=== PATIENT | female | born 1995 ===

== ENCOUNTER 2021-04-01 07:27 | Inpatient (IN) | payer OTHER ==
[2021-04-01] MEDS ORDERED: Water For Irrigation,Sterile 1,000 ML Container IRR PRN (08:21)
[2021-04-01] MEDS ORDERED: Misoprostol 200 MCG Tab PO PRN (08:21)
[2021-04-01] MEDS ORDERED: Carboprost Tromethamine 250 MCG/1 ML Amp IM PRN (08:21)
[2021-04-01] MEDS ORDERED: Lidocaine 1% 50 ML MDV INJECT PRN (08:21)
[2021-04-01] MEDS ORDERED: Sodium Chloride 0.9% 10 ML Syringe FLUSH PRN (08:21)
[2021-04-01] MEDS ORDERED: Nalbuphine 10 MG/1 ML Vial IVPUSH PRN (08:21)
[2021-04-01] MEDS ORDERED: Butorphanol 1 MG/ML SDV IVPUSH PRN (08:21)
[2021-04-01] MEDS ORDERED: Ondansetron 4 MG/2 ML SDV IVPUSH PRN (08:21)
[2021-04-01] MEDS ORDERED: Sodium Chloride 0.9% 10 ML SDV IV PRN (08:21)
[2021-04-01] MEDS ORDERED: Tranexamic Acid 1,000 MG in Sodium Chloride 0.9% 100 ML IV PRN (08:21)
[2021-04-01] MEDS ORDERED: Methylergonovine 0.2 MG/1 ML Amp IM PRN (08:21)
[2021-04-01] MEDS ORDERED: Sodium Chloride 0.9% 2.5 ML Syringe FLUSH PRN (08:21)
[2021-04-01] MEDS ORDERED: Oxytocin/0.9 % Sodium Chloride 30 UNIT/500 ML BAG IV SCH (08:30)
--- NOTE | 2021-04-01 08:51 | PCM.LDHP ---
L&D History of Present Illness - General Date of Service: 04/01/21 Admit Problem/Dx: Patient Status Order with Admit Dx/Problem 04/01/21 07:33 Patient Status [ADT] Routine 04/01/21 08:21 Patient Status [ADT] Routine Admission Diagnosis/Problem Admission Diagnosis/Problem Source of Information: Patient History Limitations: Reports: No Limitations - History of Present Illness Introduction:: Subjective: 25 year old G1 female at 40w5d presented to labor and delivery at 0715 after noted spontaneous rupture of membranes. Light green meconium stained fluid noted. Has had cramping since her cervical check at the clinic yesterday. Reports good movement. Denies vaginal bleeding. has been complicated by maternal obesity. Denies headaches, visual changes or RUQ pain. 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 Social & Family History - Family History Family Medical History: No Pertinent Family History - Tobacco Use Tobacco Use Status *Q: Never Tobacco User Second Hand Smoke Exposure: No - Recreational Drug Use Recreational Drug Use: No H&P Review of Systems - Review of Systems: Review Of Systems: See Below General: Reports: No Symptoms HEENT: Reports: No Symptoms Pulmonary: Reports: No Symptoms Cardiovascular: Reports: No Symptoms Gastrointestinal: Reports: Abdominal Pain Genitourinary: Reports: No Symptoms Musculoskeletal: Reports: Back Pain Skin: Reports: No Symptoms Psychiatric: Reports: No Symptoms Neurological: Reports: No Symptoms Hematologic/Lymphatic: Reports: No Symptoms Immunologic: Reports: No Symptoms L&D Exam - Exam Exam: See Below - Vital Signs Weight: 222 lb - OB Specific Contraction Intensity: Irritability Movement: Active Heart Tones: Present Heart Tones per Min: 125 Heart Rate (FHR) Variability: Moderate (6-25 bpm) Presentation: Vertex Estimated Weight: 3700 grams per ultrasound - Boogie Score Boogie Score Cervix Position: Midposition Boogie Score Consistency: Medium Boogie Score Effacement: 51-70% Boogie Score Dilation: 3-4 cm Boogie Score Infant's Station: -2 Boogie Score Total: 7 - Exam General: Alert Lungs: Normal Respiratory Effort Cardiovascular: Regular Rate GI/Abdominal Exam: Normal Bowel Sounds, Soft, Non-Tender Back Exam: Full Range of Motion Extremities: Normal Range of Motion, Non-Tender, Pedal Edema (trace) Skin: Warm, Dry, Intact Psychiatric: Normal Mood - Patient Data Lab Results Last 24 hrs: Laboratory Results - last 24 hr 04/01/21 Range/Units 07:45 Membrane Rupture POSITIVE Problem List Initiated/Reviewed/Updated: Yes Orders Last 24hrs: Active Orders 24 hr Category Date Time Status Patient Status [ADT] Routine ADT 04/01/21 08:21 Active Heart Tones [RC] CONTINUOUS Care 04/01/21 08:21 Active Non Stress Test [RC] PER UNIT ROUTINE Care 04/01/21 07:33 Active May Shower [RC] ASDIRECTED Care 04/01/21 08:21 Active Notify Provider [RC] PRN Care 04/01/21 08:21 Active Up ad Nadira [RC] ASDIRECTED Care 04/01/21 07:33 Active Vaginal Exam [RC] Click to Edit Care 04/01/21 07:33 Active Vital Signs [RC] PER UNIT ROUTINE Care 04/01/21 07:33 Active CBC W/O DIFF,HEMOGRAM [HEME] Routine Lab 04/01/21 08:21 Ordered COMPREHENSIVE METABOLIC PN,CMP [CHEM] Routine Lab 04/01/21 08:21 Ordered RPR (SYPHILIS SERO) W/ RFLX [REF] Routine Lab 04/01/21 08:21 Ordered TYPE AND SCREEN [BBK] Routine Lab 04/01/21 08:21 Ordered UA W/O MICROSCOPIC [URIN] Routine Lab 04/01/21 08:33 Ordered Butorphanol [Stadol] Med 04/01/21 08:21 Active 1 mg IVPUSH Q1H PRN Carboprost Tromethamine [Hemabate DS] Med 04/01/21 08:21 Active 250 mcg IM ASDIRECTED PRN Lactated Ringers [Ringers, Lactated] 1,000 ml Med 04/01/21 08:30 Active IV ASDIRECTED Lidocaine 1% [Xylocaine 1%] Med 04/01/21 08:21 Active 50 ml INJECT ONETIME PRN Methylergonovine [Methergine] Med 04/01/21 08:21 Active 0.2 mg IM ASDIRECTED PRN Nalbuphine [Nubain] Med 04/01/21 08:21 Active 10 mg IVPUSH Q1H PRN Ondansetron [Zofran] Med 04/01/21 08:21 Active 4 mg IVPUSH Q6H PRN Oxytocin/0.9 % Sodium Chloride [Oxytocin 30 Unit in NS Med 04/01/21 08:30 Active 0.9% 500 ML Premix] 30 unit in 500 ml IV TITRATE Sodium Chloride 0.9% [Normal Saline] Med 04/01/21 08:21 Active 10 ml IV ASDIRECTED PRN Sodium Chloride 0.9% [Saline Flush] Med 04/01/21 08:21 Active 10 ml FLUSH ASDIRECTED PRN Sodium Chloride 0.9% [Saline Flush] Med 04/01/21 08:21 Active 2.5 ml FLUSH ASDIRECTED PRN Tranexamic Acid [Cyklokapron] 1,000 mg Med 04/01/21 08:21 Active Sodium Chloride 0.9% [Normal Saline] 100 ml IV ONETIME Water For Irrigation,Sterile [Sterile Water for Med 04/01/21 08:21 Active Irrigation] 1,000 ml IRR ASDIRECTED PRN miSOPROStoL [Cytotec] Med 04/01/21 08:21 Active 200 mcg PO ONETIME PRN Scalp Electrode [WOMSER] Per Unit Routine Oth 04/01/21 08:21 Ordered Peripheral IV Insertion Adult [OM.PC] Routine Oth 04/01/21 08:21 Ordered Resuscitation Status Routine Resus Stat 04/01/21 07:33 Ordered Medication Orders Butorphanol Tartrate (Butorphanol 1 Mg/Ml Sdv) 1 mg IVPUSH Q1H PRN PRN Reason: Pain (severe 7-10) Carboprost Tromethamine (Carboprost Tromethamine 250 Mcg/1 Ml Amp) 250 mcg IM ASDIRECTED PRN PRN Reason: Post Hemorrhage Lactated Ringer's (Ringers, Lactated) 1,000 mls @ 150 mls/hr IV ASDIRECTED MALLY Oxytocin/Sodium Chloride (Oxytocin 30 Unit In Ns 0.9% 500 Ml Premix) 30 unit in 500 mls @ 500 mls/hr IV TITRATE MALLY Tranexamic Acid 1,000 mg/ (Sodium Chloride) 110 mls @ 660 mls/hr IV ONETIME PRN PRN Reason: Bleeding Lidocaine HCl (Lidocaine 1% 50 Ml Mdv) 50 ml INJECT ONETIME PRN PRN Reason: Laceration repair Methylergonovine Maleate (Methylergonovine 0.2 Mg/1 Ml Amp) 0.2 mg IM ASDIRECTED PRN PRN Reason: Post Hemorrhage Misoprostol (Misoprostol 200 Mcg Tab) 200 mcg PO ONETIME PRN PRN Reason: Post Hemorrhage Nalbuphine HCl (Nalbuphine 10 Mg/1 Ml Vial) 10 mg IVPUSH Q1H PRN PRN Reason: Pain (severe 7-10) Ondansetron HCl (Ondansetron 4 Mg/2 Ml Sdv) 4 mg IVPUSH Q6H PRN PRN Reason: Nausea/Vomiting Sodium Chloride (Sodium Chloride 0.9% 10 Ml Syringe) 10 ml FLUSH ASDIRECTED PRN PRN Reason: Keep Vein Open Sodium Chloride (Sodium Chloride 0.9% 2.5 Ml Syringe) 2.5 ml FLUSH ASDIRECTED PRN PRN Reason: Keep Vein Open Sodium Chloride (Sodium Chloride 0.9% 10 Ml Sdv) 10 ml IV ASDIRECTED PRN PRN Reason: IV Use Sterile Water (Water For Irrigation,Sterile 1,000 Ml Container) 1,000 ml IRR ASDIRECTED PRN PRN Reason: delivery Assessment/Plan Comment:: Assessment: 25 year old G1 at 40w5d with spontaneous rupture of membranes Plan: - Admit to labor and delivery, will recheck cervix in 2 hours and recommend initiating Pitocin for labor augmentation if no change has occurred. - A positive, rubella immune, GBS negative - Elevated BP: patient asymptomatic. Preeclampsia labs ordered. Will continue to monitor BPs. - May receive epidural PRN pain management. 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
[2021-04-01 10:58] LABS: BLOOD UREA NITROGEN,BUN 7 mg/dL (7.0-18.0); CARBON DIOXIDE,CO2 26.1 mmol/L (21.0-32.0); CHLORIDE,CL 104 mmol/L (98-107); GLUCOSE RANDOM 81 mg/dL (74-106); POTASSIUM,K 4.2 mmol/L (3.5-5.1); SODIUM,NA 140 mmol/L (136-145)
[2021-04-01] MEDS: Lactated Ringers 1,000 ML IV SCH ×3 (11:20→18:07)
[2021-04-01] MEDS ORDERED: Ropivacaine HCl/PF 200 ML ONE (15:48)
[2021-04-01] MEDS ORDERED: ePHEDrine 50 MG/ML SDV IVPUSH PRN (16:24)
--- NOTE | 2021-04-01 16:26 | PCM.PREANE ---
Preanesthetic Assessment - Anesthesia/Transfusion/Family Hx Anesthesia History: No Prior Anesthesia Family History of Anesthesia Reaction: No Transfusion History: Unknown - Review of Systems General: No Symptoms Pulmonary: No Symptoms Cardiovascular: No Symptoms Gastrointestinal: No Symptoms Neurological: No Symptoms Other: Reports: None - Physical Assessment NPO Status Date: 04/01/21 NPO Status Time: 08:00 Height: 5 ft 6 in Weight: 222 lb ASA Class: 2 Mental Status: Alert & Oriented x3 Airway Class: Mallampati = 2 Dentition: Reports: Normal Dentition ROM/Head Extension: Full Lungs: Clear to Auscultation, Normal Respiratory Effort Cardiovascular: Regular Rate, Regular Rhythm - Lab Values: Laboratory Last Values WBC 15.33 K/uL (4.0-11.0) H 04/01/21 10:00 RBC 4.75 M/uL (4.30-5.90) 04/01/21 10:00 Hgb 14.4 g/dL (12.0-16.0) 04/01/21 10:00 Hct 40.9 % (36.0-46.0) 04/01/21 10:00 MCV 86.1 fL (80.0-98.0) 04/01/21 10:00 MCH 30.3 pg (27.0-32.0) 04/01/21 10:00 MCHC 35.2 g/dL (31.0-37.0) 04/01/21 10:00 RDW Std Deviation 41.8 fl (28.0-62.0) 04/01/21 10:00 RDW Coeff of Stella 13 % (11.0-15.0) 04/01/21 10:00 Plt Count 188 K/uL (150-400) 04/01/21 10:00 MPV 11.30 fL (7.40-12.00) 04/01/21 10:00 Nucleated RBC % 0.0 /100WBC 04/01/21 10:00 Nucleated RBCs # 0 K/uL 04/01/21 10:00 Sodium 140 mmol/L (136-145) 04/01/21 10:00 Potassium 4.2 mmol/L (3.5-5.1) 04/01/21 10:00 Chloride 104 mmol/L (98-107) 04/01/21 10:00 Carbon Dioxide 26.1 mmol/L (21.0-32.0) 04/01/21 10:00 BUN 7 mg/dL (7.0-18.0) 04/01/21 10:00 Creatinine 0.6 mg/dL (0.6-1.0) 04/01/21 10:00 Est Cr Clr Drug Dosing 133.01 mL/min 04/01/21 10:00 Estimated GFR (MDRD) > 60.0 ml/min 04/01/21 10:00 Glucose 81 mg/dL (74-106) 04/01/21 10:00 Calcium 8.8 mg/dL (8.5-10.1) 04/01/21 10:00 Total Bilirubin 0.2 mg/dL (0.2-1.0) 04/01/21 10:00 AST 15 IU/L (15-37) 04/01/21 10:00 ALT 17 IU/L (14-63) 04/01/21 10:00 Alkaline Phosphatase 174 U/L (46-116) H 04/01/21 10:00 Total Protein 6.3 g/dL (6.4-8.2) L 04/01/21 10:00 Albumin 2.8 g/dL (3.4-5.0) L 04/01/21 10:00 Globulin 3.5 g/dL (2.6-4.0) 04/01/21 10:00 Albumin/Globulin Ratio 0.8 (0.9-1.6) L 04/01/21 10:00 Urine Color YELLOW 04/01/21 09:15 Urine Appearance CLEAR 04/01/21 09:15 Urine pH 6.5 (5.0-8.0) 04/01/21 09:15 Ur Specific [place] 1.010 (1.001-1.035) 04/01/21 09:15 Urine Protein NEGATIVE mg/dL (NEGATIVE) 04/01/21 09:15 Urine Glucose (UA) NEGATIVE mg/dL (NEGATIVE) 04/01/21 09:15 Urine Ketones NEGATIVE mg/dL (NEGATIVE) 04/01/21 09:15 Urine Occult Blood NEGATIVE (NEGATIVE) 04/01/21 09:15 Urine Nitrite NEGATIVE (NEGATIVE) 04/01/21 09:15 Urine Bilirubin NEGATIVE (NEGATIVE) 04/01/21 09:15 Urine Urobilinogen 0.2 EU/dL (<2.0) 04/01/21 09:15 Ur Leukocyte Esterase NEGATIVE (NEGATIVE) 04/01/21 09:15 Ur Random Creatinine 30.9 mg/dL 04/01/21 09:15 U Random Total Protein 12.2 mg/dL (<11.9) H 04/01/21 09:15 Protein/Creatinin Ratio 0.4 04/01/21 09:15 Membrane Rupture POSITIVE 04/01/21 07:45 SARS-CoV-2 RNA (VICK) NEGATIVE (NEGATIVE) 04/01/21 09:18 Blood Type A POSITIVE 04/01/21 10:00 Antibody Screen NEGATIVE 04/01/21 10:00 - Allergies Allergies/Adverse Reactions: Allergies Allergy/AdvReac Type Severity Reaction Status Date / Time amoxicillin Allergy Hives Verified 04/01/21 07:35 - Blood Blood Available: Yes - Acknowledgements Anesthesia Type Planned: Epidural Pt an Appropriate Candidate for the Planned Anesthesia: Yes Alternatives and Risks of Anesthesia Discussed w Pt/Guardian: Yes Pt/Guardian Understands and Agrees with Anesthesia Plan: Yes PreAnesthesia Questionnaire - Past Health History Medical/Surgical History: Denies Medical/Surgical History - SUBSTANCE USE Tobacco Use Status *Q: Never Tobacco User Tobacco Use Within Last Twelve Months: No Second Hand Smoke Exposure: No Recreational Drug Use History: No - HOME MEDS Home Medications: Home Meds Esomeprazole [NexIUM] 20 mg PO DAILY 04/01/21 [History] Mv-Mn/Iron/FA/Herbal/Digestive [ One Tablet] 1 each PO 04/01/21 [History] - CURRENT (IN HOUSE) MEDS Current Meds: Current Medications Butorphanol Tartrate (Butorphanol 1 Mg/Ml Sdv) 1 mg IVPUSH Q1H PRN PRN Reason: Pain (severe 7-10) Carboprost Tromethamine (Carboprost Tromethamine 250 Mcg/1 Ml Amp) 250 mcg IM ASDIRECTED PRN PRN Reason: Post Hemorrhage Ephedrine Sulfate (Ephedrine 50 Mg/Ml Sdv) 10 mg IVPUSH Q5M PRN PRN Reason: Hypotension Ephedrine Sulfate (Ephedrine 50 Mg/Ml Sdv) 10 mg IVPUSH Q1M PRN PRN Reason: Hypotension Lactated Ringer's (Ringers, Lactated) 1,000 mls @ 150 mls/hr IV ASDIRECTED [facility] Last Admin: 04/01/21 11:20 Dose: 150 mls/hr Documented by: Oxytocin/Sodium Chloride (Oxytocin 30 Unit In Ns 0.9% 500 Ml Premix) 30 unit in 500 mls @ 500 mls/hr IV TITRATE [facility] Tranexamic Acid 1,000 mg/ (Sodium Chloride) 110 mls @ 660 mls/hr IV ONETIME PRN PRN Reason: Bleeding Lidocaine HCl (Lidocaine 1% 50 Ml Mdv) 50 ml INJECT ONETIME PRN PRN Reason: Laceration repair Methylergonovine Maleate (Methylergonovine 0.2 Mg/1 Ml Amp) 0.2 mg IM ASDIRECTED PRN PRN Reason: Post Hemorrhage Misoprostol (Misoprostol 200 Mcg Tab) 200 mcg PO ONETIME PRN PRN Reason: Post Hemorrhage Nalbuphine HCl (Nalbuphine 10 Mg/1 Ml Vial) 10 mg IVPUSH Q1H PRN PRN Reason: Pain (severe 7-10) Ondansetron HCl (Ondansetron 4 Mg/2 Ml Sdv) 4 mg IVPUSH Q6H PRN PRN Reason: Nausea/Vomiting Ropivacaine (Ropivacaine/Pf 400 Mg/200 Ml Educational Technician) 400 mg EPIDUR ASDIRECTED [facility] Sodium Chloride (Sodium Chloride 0.9% 10 Ml Syringe) 10 ml FLUSH ASDIRECTED PRN PRN Reason: Keep Vein Open Sodium Chloride (Sodium Chloride 0.9% 2.5 Ml Syringe) 2.5 ml FLUSH ASDIRECTED PRN PRN Reason: Keep Vein Open Sodium Chloride (Sodium Chloride 0.9% 10 Ml Sdv) 10 ml IV ASDIRECTED PRN PRN Reason: IV Use Sterile Water (Water For Irrigation,Sterile 1,000 Ml Container) 1,000 ml IRR ASDIRECTED PRN PRN Reason: delivery Discontinued Medications Ropivacaine (Naropin 0.2%) Confirm Administered Dose 200 mls @ as directed .ROUTE .[facility] Stop: 04/01/21 15:49
--- NOTE | 2021-04-01 16:28 | PCM.SN.2 ---
Time Documentation - Pre-Procedure Checklist Attending Provider Aware: Yes Chart Reviewed: Yes Consent Signed: Yes Labs Reviewed: Yes VS/FHR Reviewed: Yes Patient Identification Confirmation Method: Reports: Chart Visual, ID Band Visual, Verbal Patient Pt an Appropriate Candidate for the Planned Anesthesia: Yes Alternatives and Risks of Anesthesia Discussed w Pt/Guardian: Yes - Procedure Procedure Start Date: 04/01/21 Procedure Start Time: 15:[address]: Reports: Blood Pressure, Heart Rate, SPO2 Functional IV: Yes Safety Measures: Reports: Patient Identified, Procedure Verified, Site Verified, Procedure Time Out Patient Position: Reports: Sitting Prep: Reports: Alcohol x3, Betadine x3 Local Anesthetic: Reports: Intradermal Wheal w Lidocaine 1% Regional Placement Level: Reports: L2-3 Needle: Reports: 17 g Touhy Approach: Reports: Midline Technique: Reports: SERA Glass Syringe Parasthesia: Reports: None Fluid Obtained: Reports: None Test Dose Medication: Reports: Lidocaine 1.5% w Epinephrine 1:200,000 Test Dose Response: Reports: Negative Loading Dose Time: 16:00 Loading Dose Medication: 5cc 2% lido Continuous Infusion Start Time: 15:55 Continuous Infusion Medication: 0.2% Naropin Continuous Infusion Rate: 18 Continuous Infusion PCS Bolus Option: 4 Continuous Infusion Lockout Dose (cc/hr): 30 Patient Position Post Placement: Reports: Supline/JOCELYN VS and FHR Monitored in Unit Post Placement: Yes Procedure End Date: 04/01/21 Procedure End Time: 16:30
--- NOTE | 2021-04-01 16:29 | PCM.POSTAN ---
POST ANESTHESIA ASSESSMENT - MENTAL STATUS Mental Status: Alert, Oriented - RESPIRATORY Respiratory Status: Respiratory Rate WNL, Airway Patent, O2 Saturation Stable - CARDIOVASCULAR CV Status: Pulse Rate WNL, Blood Pressure Stable - GASTROINTESTINAL GI Status: No Symptoms - POST OP HYDRATION Hydration Status: Adequate & Stable
[2021-04-01] MEDS ORDERED: Ropivacaine 0.2% 2MG/ML 200 ML Bag EPIDUR SCH (16:30)
[2021-04-01] MEDS ORDERED: Lidocaine 2% 5 ML SDV ONE (16:37)
[2021-04-01] MEDS ORDERED: ePHEDrine 50 MG/ML SDV ONE (17:40)
[2021-04-01] MEDS: ePHEDrine 50 MG/ML SDV IVPUSH PRN ×2 (17:41→17:59)
[2021-04-02] MEDS ORDERED: oxyCODONE 5 MG Tab PO PRN (00:25)
[2021-04-02] MEDS ORDERED: Benzocaine/Menthol 20%-0.5% Spray 78 GM Cannister TOP PRN (00:25)
[2021-04-02] MEDS ORDERED: Witch Hazel Medicated Pads 40/Jar TOP PRN (00:25)
[2021-04-02] MEDS ORDERED: Lanolin 100% Cream 7 GM Tube TOP PRN (00:25)
[2021-04-02] MEDS ORDERED: Docusate Sodium 100 MG Cap PO PRN (00:25)
[2021-04-02] MEDS ORDERED: Bisacodyl 10 MG Supp RECTAL PRN (00:25)
[2021-04-02] MEDS ORDERED: Ibuprofen 400 MG Tab PO PRN (00:25)
[2021-04-02] MEDS ORDERED: Acetaminophen 500 MG Tab PO PRN (00:25)
--- NOTE | 2021-04-02 00:28 | PCM.DEL ---
L & D Note - General Info Date of Service: 04/02/21 Mother's Due Date: 03/27/21 - Delivery Note Labor: Spontaneous Delivery Outcome: Livebirth Infant Delivery Method: Spontaneous Vaginal Delivery-Single Presentation: Right Occiput Anterior (GABRIELLE) Nuchal Cord: None Anesthesia Type: Epidural Amniotic Fluid Description: Meconium Stained Episiotomy Type: None Laceration: 2nd Degree, Labial (right and left) Suture type: Vicryl (2-0), Chromic (3-0) Placenta: Intact, Spontaneous Cord: 3 Vessels Estimated Blood Loss: 350 Resuscitation Needed: No [place]: Suctioned, Bulb Syringe, Stimulated Score 1 min: 8 Score 5 min: 9 Delivery Comments (Free Text/Narrative):: Dictation #[id number] - General Info Date of Service: 04/02/21 Admission Dx/Problem (Free Text): Patient Status Order with Admit Dx/Problem 04/01/21 07:33 Patient Status [ADT] Routine 04/01/21 08:21 Patient Status [ADT] Routine Admission Diagnosis/Problem Admission Diagnosis/Problem - Patient Data Weight - Most Recent: 222 lb Lab Results Last 24 Hours: Laboratory Results - last 24 hr 04/01/21 04/01/21 04/01/21 Range/Units 07:45 09:15 09:15 WBC (4.0-11.0) K/uL RBC (4.30-5.90) M/uL Hgb (12.0-16.0) g/dL Hct (36.0-46.0) % MCV (80.0-98.0) fL MCH (27.0-32.0) pg MCHC (31.0-37.0) g/dL RDW Std Deviation (28.0-62.0) fl RDW Coeff of Stella (11.0-15.0) % Plt Count (150-400) K/uL MPV (7.40-12.00) fL Nucleated RBC % /100WBC Nucleated RBCs # K/uL Sodium (136-145) mmol/L Potassium (3.5-5.1) mmol/L Chloride (98-107) mmol/L Carbon Dioxide (21.0-32.0) mmol/L BUN (7.0-18.0) mg/dL Creatinine (0.6-1.0) mg/dL Est Cr Clr Drug Dosing mL/min Estimated GFR (MDRD) ml/min Glucose (74-106) mg/dL Calcium (8.5-10.1) mg/dL Total Bilirubin (0.2-1.0) mg/dL AST (15-37) IU/L ALT (14-63) IU/L Alkaline Phosphatase (46-116) U/L Total Protein (6.4-8.2) g/dL Albumin (3.4-5.0) g/dL Globulin (2.6-4.0) g/dL Albumin/Globulin Ratio (0.9-1.6) Urine Color YELLOW Urine Appearance CLEAR Urine pH 6.5 (5.0-8.0) Ur Specific [place] 1.010 (1.001-1.035) Urine Protein NEGATIVE (NEGATIVE) mg/dL Urine Glucose (UA) NEGATIVE (NEGATIVE) mg/dL Urine Ketones NEGATIVE (NEGATIVE) mg/dL Urine Occult Blood NEGATIVE (NEGATIVE) Urine Nitrite NEGATIVE (NEGATIVE) Urine Bilirubin NEGATIVE (NEGATIVE) Urine Urobilinogen 0.2 (<2.0) EU/dL Ur Leukocyte Esterase NEGATIVE (NEGATIVE) Ur Random Creatinine 30.9 mg/dL U Random Total Protein 12.2 H (<11.9) mg/dL Protein/Creatinin Ratio 0.4 Membrane Rupture POSITIVE SARS-CoV-2 RNA (VICK) (NEGATIVE) Blood Type Antibody Screen 04/01/21 04/01/21 04/01/21 Range/Units 09:18 10:00 10:00 WBC 15.33 H (4.0-11.0) K/uL RBC 4.75 (4.30-5.90) M/uL Hgb 14.4 (12.0-16.0) g/dL Hct 40.9 (36.0-46.0) % MCV 86.1 (80.0-98.0) fL MCH 30.3 (27.0-32.0) pg MCHC 35.2 (31.0-37.0) g/dL RDW Std Deviation 41.8 (28.0-62.0) fl RDW Coeff of Stella 13 (11.0-15.0) % Plt Count 188 (150-400) K/uL MPV 11.30 (7.40-12.00) fL Nucleated RBC % 0.0 /100WBC Nucleated RBCs # 0 K/uL Sodium 140 (136-145) mmol/L Potassium 4.2 (3.5-5.1) mmol/L Chloride 104 (98-107) mmol/L Carbon Dioxide 26.1 (21.0-32.0) mmol/L BUN 7 (7.0-18.0) mg/dL Creatinine 0.6 (0.6-1.0) mg/dL Est Cr Clr Drug Dosing 133.01 mL/min Estimated GFR (MDRD) > 60.0 ml/min Glucose 81 (74-106) mg/dL Calcium 8.8 (8.5-10.1) mg/dL Total Bilirubin 0.2 (0.2-1.0) mg/dL AST 15 (15-37) IU/L ALT 17 (14-63) IU/L Alkaline Phosphatase 174 H (46-116) U/L Total Protein 6.3 L (6.4-8.2) g/dL Albumin 2.8 L (3.4-5.0) g/dL Globulin 3.5 (2.6-4.0) g/dL Albumin/Globulin Ratio 0.8 L (0.9-1.6) Urine Color Urine Appearance Urine pH (5.0-8.0) Ur Specific [place] (1.001-1.035) Urine Protein (NEGATIVE) mg/dL Urine Glucose (UA) (NEGATIVE) mg/dL Urine Ketones (NEGATIVE) mg/dL Urine Occult Blood (NEGATIVE) Urine Nitrite (NEGATIVE) Urine Bilirubin (NEGATIVE) Urine Urobilinogen (<2.0) EU/dL Ur Leukocyte Esterase (NEGATIVE) Ur Random Creatinine mg/dL U Random Total Protein (<11.9) mg/dL Protein/Creatinin Ratio Membrane Rupture SARS-CoV-2 RNA (VICK) NEGATIVE (NEGATIVE) Blood Type Antibody Screen 04/01/21 Range/Units 10:00 WBC (4.0-11.0) K/uL RBC (4.30-5.90) M/uL Hgb (12.0-16.0) g/dL Hct (36.0-46.0) % MCV (80.0-98.0) fL MCH (27.0-32.0) pg MCHC (31.0-37.0) g/dL RDW Std Deviation (28.0-62.0) fl RDW Coeff of Stella (11.0-15.0) % Plt Count (150-400) K/uL MPV (7.40-12.00) fL Nucleated RBC % /100WBC Nucleated RBCs # K/uL Sodium (136-145) mmol/L Potassium (3.5-5.1) mmol/L Chloride (98-107) mmol/L Carbon Dioxide (21.0-32.0) mmol/L BUN (7.0-18.0) mg/dL Creatinine (0.6-1.0) mg/dL Est Cr Clr Drug Dosing mL/min Estimated GFR (MDRD) ml/min Glucose (74-106) mg/dL Calcium (8.5-10.1) mg/dL Total Bilirubin (0.2-1.0) mg/dL AST (15-37) IU/L ALT (14-63) IU/L Alkaline Phosphatase (46-116) U/L Total Protein (6.4-8.2) g/dL Albumin (3.4-5.0) g/dL Globulin (2.6-4.0) g/dL Albumin/Globulin Ratio (0.9-1.6) Urine Color Urine Appearance Urine pH (5.0-8.0) Ur Specific [place] (1.001-1.035) Urine Protein (NEGATIVE) mg/dL Urine Glucose (UA) (NEGATIVE) mg/dL Urine Ketones (NEGATIVE) mg/dL Urine Occult Blood (NEGATIVE) Urine Nitrite (NEGATIVE) Urine Bilirubin (NEGATIVE) Urine Urobilinogen (<2.0) EU/dL Ur Leukocyte Esterase (NEGATIVE) Ur Random Creatinine mg/dL U Random Total Protein (<11.9) mg/dL Protein/Creatinin Ratio Membrane Rupture SARS-CoV-2 RNA (VICK) (NEGATIVE) Blood Type A POSITIVE Antibody Screen NEGATIVE Med Orders - Current: Current Medications Butorphanol Tartrate (Butorphanol 1 Mg/Ml Sdv) 1 mg IVPUSH Q1H PRN PRN Reason: Pain (severe 7-10) Carboprost Tromethamine (Carboprost Tromethamine 250 Mcg/1 Ml Amp) 250 mcg IM ASDIRECTED PRN PRN Reason: Post Hemorrhage Ephedrine Sulfate (Ephedrine 50 Mg/Ml Sdv) 10 mg IVPUSH Q5M PRN PRN Reason: Hypotension Last Admin: 04/01/21 17:59 Dose: 5 mg Documented by: Ephedrine Sulfate (Ephedrine 50 Mg/Ml Sdv) 10 mg IVPUSH Q1M PRN PRN Reason: Hypotension Lactated Ringer's (Ringers, Lactated) 1,000 mls @ 150 mls/hr IV ASDIRECTED [facility] Last Admin: 04/01/21 18:07 Dose: 150 mls/hr Documented by: Oxytocin/Sodium Chloride (Oxytocin 30 Unit In Ns 0.9% 500 Ml Premix) 30 unit in 500 mls @ 500 mls/hr IV TITRATE [facility] Last Admin: 04/01/21 23:51 Dose: 500 mls/hr Documented by: Tranexamic Acid 1,000 mg/ (Sodium Chloride) 110 mls @ 660 mls/hr IV ONETIME PRN PRN Reason: Bleeding Lidocaine HCl (Lidocaine 1% 50 Ml Mdv) 50 ml INJECT ONETIME PRN PRN Reason: Laceration repair Methylergonovine Maleate (Methylergonovine 0.2 Mg/1 Ml Amp) 0.2 mg IM ASDIRECTED PRN PRN Reason: Post Hemorrhage Miscellaneous Medication (Phenylephrine Hcl In 0.9% Nacl 1 Mg/10 Ml Syringe) 0.1 mg IVPUSH Q1M PRN PRN Reason: Hypotension Misoprostol (Misoprostol 200 Mcg Tab) 200 mcg PO ONETIME PRN PRN Reason: Post Hemorrhage Nalbuphine HCl (Nalbuphine 10 Mg/1 Ml Vial) 10 mg IVPUSH Q1H PRN PRN Reason: Pain (severe 7-10) Ondansetron HCl (Ondansetron 4 Mg/2 Ml Sdv) 4 mg IVPUSH Q6H PRN PRN Reason: Nausea/Vomiting Ropivacaine (Ropivacaine 0.2% 2mg/Ml 200 Ml Bag) 400 mg EPIDUR ASDIRECTED [facility] Sodium Chloride (Sodium Chloride 0.9% 10 Ml Syringe) 10 ml FLUSH ASDIRECTED PRN PRN Reason: Keep Vein Open Sodium Chloride (Sodium Chloride 0.9% 2.5 Ml Syringe) 2.5 ml FLUSH ASDIRECTED PRN PRN Reason: Keep Vein Open Sodium Chloride (Sodium Chloride 0.9% 10 Ml Sdv) 10 ml IV ASDIRECTED PRN PRN Reason: IV Use Sterile Water (Water For Irrigation,Sterile 1,000 Ml Container) 1,000 ml IRR ASDIRECTED PRN PRN Reason: delivery Discontinued Medications Ephedrine Sulfate (Ephedrine 50 Mg/Ml Sdv) Confirm Administered Dose 50 mg .ROUTE .STK-MED ONE Stop: 04/01/21 17:41 Ropivacaine (Naropin 0.2%) Confirm Administered Dose 200 mls @ as directed .R OUTE .STK-MED ONE Stop: 04/01/21 15:49 Lidocaine (Lidocaine 2% 5 Ml Sdv) Confirm Administered Dose 10 ml .ROUTE .STK- MED ONE Stop: 04/01/21 16:38 - Problem List Review Problem List Initiated/Reviewed/Updated: Yes - My Orders Last 24 Hours: My Active Orders 04/01/21 Breakfast Regular Diet [DIET] 04/01/21 07:33 Up ad Nadira [RC] ASDIRECTED Vital Signs [RC] PER UNIT ROUTINE Resuscitation Status Routine 04/01/21 08:21 Patient Status [ADT] Routine May Shower [RC] ASDIRECTED Notify Provider [RC] PRN Butorphanol [Stadol] 1 mg IVPUSH Q1H PRN Carboprost Tromethamine [Hemabate DS] 250 mcg IM ASDIRECTED PRN Lidocaine 1% [Xylocaine 1%] 50 ml INJECT ONETIME PRN Methylergonovine [Methergine] 0.2 mg IM ASDIRECTED PRN Nalbuphine [Nubain] 10 mg IVPUSH Q1H PRN Ondansetron [Zofran] 4 mg IVPUSH Q6H PRN Sodium Chloride 0.9% [Normal Saline] 10 ml IV ASDIRECTED PRN Sodium Chloride 0.9% [Saline Flush] 10 ml FLUSH ASDIRECTED PRN Sodium Chloride 0.9% [Saline Flush] 2.5 ml FLUSH ASDIRECTED PRN Tranexamic Acid [Cyklokapron] 1,000 mg Sodium Chloride 0.9% [Normal Saline] 100 ml IV ONETIME Water For Irrigation,Sterile [Sterile Water for Irrigation] 1,000 ml IRR ASDIRECTED PRN miSOPROStoL [Cytotec] 200 mcg PO ONETIME PRN Scalp Electrode [WOMSER] Per Unit Routine Peripheral IV Insertion Adult [OM.PC] Routine 04/01/21 08:30 Lactated Ringers [Ringers, Lactated] 1,000 ml IV ASDIRECTED Oxytocin/0.9 % Sodium Chloride [Oxytocin 30 Unit in NS 0.9% 500 ML Premix] 30 unit in 500 ml IV TITRATE 04/01/21 10:00 RPR (SYPHILIS SERO) W/ RFLX [REF] Routine 04/02/21 00:25 Patient Status [ADT] Routine May Shower [RC] ASDIRECTED Up ad Nadira [RC] ASDIRECTED Vital Signs [RC] PER UNIT ROUTINE Acetaminophen [Tylenol Extra Strength] 1,000 mg PO Q4H PRN Acetaminophen [Tylenol Extra Strength] 500 mg PO Q4H PRN Benzocaine/Menthol [Dermoplast Pain Relief 20%-0.5% [place]] 78 gm TOP ASDIRECTED PRN Docusate Sodium [Colace] 100 mg PO Q12H PRN Ibuprofen [Motrin] 400 mg PO Q4H PRN Ibuprofen [Motrin] 800 mg PO Q6H PRN Lanolin [Lansinoh HPA] See Dose Instructions TOP ASDIRECTED PRN bisacodyL [Dulcolax] 10 mg RECTAL ONETIME PRN oxyCODONE 5 mg PO Q2H PRN witch Kareen [Tucks] 1 pad TOP ASDIRECTED PRN Assess Lochia [WOMSER] Per Unit Routine Assess Uterine Involution [WOMSER] Per Unit Routine Peripheral IV Discontinue [OM.PC] Routine 04/03/21 05:11 HEMOGLOBIN/HEMATOCRIT,HH [HEME] Timed - Assessment Assessment:: 25 year old G1 now P1 s/p with preeclampsia without severe features - Plan Plan:: Routine cares * A positive, rubella immune, GBS negative * PO pain medication ordered PRN * Regular diet as tolerated * Encourage ambulation and fluid intake when able * Plans to breastfeed, nursing assistance as needed Preeclampsia without severe features * Diagnosed with elevated BP and protein/creatinine ratio of 0.4 * Asymptomatic * Will continue to monitor closely Dispo: stable. Admit to room.
--- NOTE | 2021-04-02 01:02 | OR ---
SURGEON: NADIA QUIÑONES MD DATE OF PROCEDURE: 04/01/2021 PREOPERATIVE DIAGNOSES: 1. Term intrauterine at 40 weeks and 5 days. 2. Maternal obesity. 3. Preeclampsia without severe features. POSTOPERATIVE DIAGNOSES: 1. Term intrauterine at 40 weeks and 5 days. 2. Maternal obesity. 3. Preeclampsia without severe features. PROCEDURE PERFORMED: 1. Spontaneous vaginal delivery. 2. Repair of bilateral labial lacerations and second-degree perineal laceration. PRIMARY SURGEON: Nadia Quiñones MD ANESTHESIOLOGIST: Dr. Mp Allen. ANESTHESIA: Epidural. ESTIMATED BLOOD LOSS: 350 mL. FINDINGS: Viable female infant, score of 8 and 9. Thick meconium-stained amniotic fluid. weight of 3850 g. INDICATION FOR THE PROCEDURE: The patient is a 25-year-old 1, para 0, who presented to Labor and Delivery with spontaneous onset of labor and rupture of membranes at 40 weeks and 5 days. Rupture of membranes occurred at approximately 0700 am on 04/01/2021 with meconium-stained fluid noted. She was admitted to Labor and Delivery, and labor progressed spontaneously. She received an epidural for pain management. At approximately 2210, I was notified that the patient was completely dilated and 0 station, and plan was to labor down at that time. Approximately 20 minutes later, I was called for delivery. Upon my arrival, the patient was noted to be completely dilated and at +1 station with variable decelerations during contractions. The patient was placed in the lithotomy position. DESCRIPTION OF PROCEDURE: The patient pushed over approximately 45 minutes with good descent. Head delivered in occiput anterior position, and restituted ROT. Anterior shoulder delivered easily. No nuchal cord was noted. Posterior shoulder and remainder of the body were then delivered. Nose and mouth were then suctioned. The infant was then placed on maternal abdomen and evaluated by the awaiting nursing staff and respiratory therapist. The baby was crying vigorously and moving all extremities freely after the delivery. The umbilical cord was clamped and cut after approximately 2 minutes when it was no longer pulsating. Arterial, venous, and cord blood gases were then obtained. The placenta was then expressed intact. Fundal massage was then performed, and the uterus was noted to be firm and at the umbilicus. Examination of the perineum was then performed and right and left labial lacerations were noted along with a small second- degree perineal laceration. The bilateral labial lacerations were repaired in a running fashion with 3-0 chromic, and the perineal laceration was repaired in the usual fashion with 2-0 Vicryl. Hemostasis was then confirmed. The patient tolerated the procedure well and is recovering in the delivery room with the infant at this time. SALAZAR WARREN /[id number]
[2021-04-02] MEDS: Acetaminophen 500 MG Tab PO PRN ×3 (01:35→21:39)
[2021-04-02] MEDS: Ibuprofen 800 MG Tab PO PRN ×3 (01:36→21:39)
--- NOTE | 2021-04-02 06:27 | PCM48HPAN ---
Post Anesthesia Note - EVALUATION WITHIN 48HRS OF ANESTHETIC Vital Signs in Normal Range: Yes Patient Participated in Evaluation: Yes Respiratory Function Stable: Yes Airway Patent: Yes Cardiovascular Function Stable: Yes Hydration Status Stable: Yes Pain Control Satisfactory: Yes Nausea and Vomiting Control Satisfactory: Yes Mental Status Recovered: Yes Vital Signs: Last Vital Signs Temp 97.7 F 04/02/21 05:18 Pulse 90 04/02/21 05:18 Resp 16 04/02/21 05:18 BP 109/64 04/02/21 05:18 Pulse Ox 100 04/02/21 05:18
--- NOTE | 2021-04-02 17:00 | PCM.PNPP ---
- General Info Date of Service: 04/02/21 Admission Dx/Problem (Free Text): Patient Status Order with Admit Dx/Problem 04/01/21 07:33 Patient Status [ADT] Routine 04/01/21 08:21 Patient Status [ADT] Routine Admission Diagnosis/Problem Admission Diagnosis/Problem Subjective Update: Resting comfortably in bed during rounds, nursing baby. Pain controlled with PO medications. Ambulating and voiding independently. Tolerating regular diet. Lochia decreasing. Denies headache, visual changes or right upper quadrant pain. - General Info Date of Service: 04/02/21 - Patient Data Vital Signs - Most Recent: Last Vital Signs Temp 98.5 F 04/02/21 15:45 Pulse 98 04/02/21 15:45 Resp 16 04/02/21 15:45 BP 141/95 H 04/02/21 15:45 Pulse Ox 99 04/02/21 15:45 Weight - Most Recent: 222 lb I&O - Last 24 Hours: Intake & Output 04/02/21 04/02/21 04/02/21 06:59 14:59 22:59 Intake Total 1500 Output Total 700 Balance 800 Lab Results - Last 24 Hours: Laboratory Results - last 24 hr 04/01/21 04/01/21 Range/Units 23:47 23:47 Cord ABG pH 7.353 (7.18-7.38) Cord ABG Base Excess -5 (-10--2) Cord VBG pH 7.294 (7.25-7.45) Cord VBG Base Excess -6 (-10--2) Med Orders - Current: Current Medications Acetaminophen (Acetaminophen 500 Mg Tab) 500 mg PO Q4H PRN PRN Reason: Pain (mild 1-3) Acetaminophen (Acetaminophen 500 Mg Tab) 1,000 mg PO Q4H PRN PRN Reason: Pain (mild 1-3) Last Admin: 04/02/21 09:58 Dose: 1,000 mg Documented by: Benzocaine/Menthol (Benzocaine/Menthol 20%-0.5% [place] 78 Gm Cannister) 78 gm TOP ASDIRECTED PRN PRN Reason: Perineal Comfort Measure Last Admin: 04/02/21 02:31 Dose: 1 spray Documented by: Bisacodyl (Bisacodyl 10 Mg Supp) 10 mg RECTAL ONETIME PRN PRN Reason: Constipation Butorphanol Tartrate (Butorphanol 1 Mg/Ml Sdv) 1 mg IVPUSH Q1H PRN PRN Reason: Pain (severe 7-10) Carboprost Tromethamine (Carboprost Tromethamine 250 Mcg/1 Ml Amp) 250 mcg IM ASDIRECTED PRN PRN Reason: Post Hemorrhage Docusate Sodium (Docusate Sodium 100 Mg Cap) 100 mg PO Q12H PRN PRN Reason: Constipation Last Admin: 04/02/21 09:57 Dose: 100 mg Documented by: Emollient Ointment (Lanolin 100% Cream 7 Gm Tube) 0 gm TOP ASDIRECTED PRN PRN Reason: Sore Nipples Last Admin: 04/02/21 12:03 Dose: 1 tube Documented by: Ephedrine Sulfate (Ephedrine 50 Mg/Ml Sdv) 10 mg IVPUSH Q5M PRN PRN Reason: Hypotension Last Admin: 04/01/21 17:59 Dose: 5 mg Documented by: Ephedrine Sulfate (Ephedrine 50 Mg/Ml Sdv) 10 mg IVPUSH Q1M PRN PRN Reason: Hypotension Lactated Ringer's (Ringers, Lactated) 1,000 mls @ 150 mls/hr IV ASDIRECTED MALLY Last Admin: 04/01/21 18:07 Dose: 150 mls/hr Documented by: Oxytocin/Sodium Chloride (Oxytocin 30 Unit In Ns 0.9% 500 Ml Premix) 30 unit in 500 mls @ 500 mls/hr IV TITRATE [facility] Last Admin: 04/01/21 23:51 Dose: 500 mls/hr Documented by: Tranexamic Acid 1,000 mg/ (Sodium Chloride) 110 mls @ 660 mls/hr IV ONETIME PRN PRN Reason: Bleeding Ibuprofen (Ibuprofen 400 Mg Tab) 400 mg PO Q4H PRN PRN Reason: Pain (mild 1-3) Ibuprofen (Ibuprofen 800 Mg Tab) 800 mg PO Q6H PRN PRN Reason: Cramping Last Admin: 04/02/21 15:42 Dose: 800 mg Documented by: Lidocaine HCl (Lidocaine 1% 50 Ml Mdv) 50 ml INJECT ONETIME PRN PRN Reason: Laceration repair Methylergonovine Maleate (Methylergonovine 0.2 Mg/1 Ml Amp) 0.2 mg IM ASDIRECTED PRN PRN Reason: Post Hemorrhage Miscellaneous Medication (Phenylephrine Hcl In 0.9% Nacl 1 Mg/10 Ml Syringe) 0.1 mg IVPUSH Q1M PRN PRN Reason: Hypotension Misoprostol (Misoprostol 200 Mcg Tab) 200 mcg PO ONETIME PRN PRN Reason: Post Hemorrhage Nalbuphine HCl (Nalbuphine 10 Mg/1 Ml Vial) 10 mg IVPUSH Q1H PRN PRN Reason: Pain (severe 7-10) Ondansetron HCl (Ondansetron 4 Mg/2 Ml Sdv) 4 mg IVPUSH Q6H PRN PRN Reason: Nausea/Vomiting Oxycodone HCl (Oxycodone 5 Mg Tab) 5 mg PO Q2H PRN PRN Reason: Pain (severe 7-10) Ropivacaine (Ropivacaine 0.2% 2mg/Ml 200 Ml Bag) 400 mg EPIDUR ASDIRECTED MALLY Sodium Chloride (Sodium Chloride 0.9% 10 Ml Syringe) 10 ml FLUSH ASDIRECTED PRN PRN Reason: Keep Vein Open Sodium Chloride (Sodium Chloride 0.9% 2.5 Ml Syringe) 2.5 ml FLUSH ASDIRECTED PRN PRN Reason: Keep Vein Open Sodium Chloride (Sodium Chloride 0.9% 10 Ml Sdv) 10 ml IV ASDIRECTED PRN PRN Reason: IV Use Sterile Water (Water For Irrigation,Sterile 1,000 Ml Container) 1,000 ml IRR ASDIRECTED PRN PRN Reason: delivery Witch Kareen (Witch Kareen Medicated Pads 40/Jar) 1 pad TOP ASDIRECTED PRN PRN Reason: comfort care Last Admin: 04/02/21 02:32 Dose: 1 pad Documented by: Discontinued Medications Ephedrine Sulfate (Ephedrine 50 Mg/Ml Sdv) Confirm Administered Dose 50 mg .ROUTE .STK-MED ONE Stop: 04/01/21 17:41 Last Admin: 04/02/21 02:30 Dose: Not Given Documented by: Ropivacaine (Naropin 0.2%) Confirm Administered Dose 200 mls @ as directed .ROUTE .STK-MED ONE Stop: 04/01/21 15:49 Last Admin: 04/02/21 08:28 Dose: Not Given Documented by: Lidocaine (Lidocaine 2% 5 Ml Sdv) Confirm Administered Dose 10 ml .ROUTE .STK- MED ONE Stop: 04/01/21 16:38 Last Admin: 04/02/21 02:30 Dose: Not Given Documented by: - Interaction Infant Disposition, : [place] in Room with Family Interaction: Holding Infant Infant Feeding: Breastfed ; Nursed Well Support Person: - Recovery Exam Fundal Tone: Firm Fundal Level: At Umbilicus Fundal Placement: Midline Lochia Amount: Small Lochia Color: Rubra/Red Perineum Description: Intact, Minimal Bruising/Swelling Episiotomy/Laceration: Approximated Bladder Status: Voiding Urinary Elimination: Voided - Exam General: Alert Lungs: Normal Respiratory Effort Cardiovascular: Regular Rate GI/Abdominal Exam: Soft, Non-Tender Extremities: Normal Range of Motion, Non-Tender, Pedal Edema (1+) Skin: Warm, Dry, Intact Neurological: No New Focal Deficit Psy/Mental Status: Normal Mood - Problem List Review Problem List Initiated/Reviewed/Updated: Yes - My Orders Last 24 Hours: My Active Orders 04/02/21 00:25 Patient Status [ADT] Routine May Shower [RC] ASDIRECTED Up ad Nadira [RC] ASDIRECTED Vital Signs [RC] PER UNIT ROUTINE Acetaminophen [Tylenol Extra Strength] 1,000 mg PO Q4H PRN Acetaminophen [Tylenol Extra Strength] 500 mg PO Q4H PRN Benzocaine/Menthol [Dermoplast Pain Relief 20%-0.5% [place]] 78 gm TOP ASDIRECTED PRN Docusate Sodium [Colace] 100 mg PO Q12H PRN Ibuprofen [Motrin] 400 mg PO Q4H PRN Ibuprofen [Motrin] 800 mg PO Q6H PRN Lanolin [Lansinoh HPA] See Dose Instructions TOP ASDIRECTED PRN bisacodyL [Dulcolax] 10 mg RECTAL ONETIME PRN oxyCODONE 5 mg PO Q2H PRN witch Kareen [Tucks] 1 pad TOP ASDIRECTED PRN Assess Lochia [WOMSER] Per Unit Routine Assess Uterine Involution [WOMSER] Per Unit Routine Peripheral IV Discontinue [OM.PC] Routine 04/03/21 05:11 HEMOGLOBIN/HEMATOCRIT,HH [HEME] Timed - Assessment Assessment:: 25 year old G1 now P1 PPD1 s/p with preeclampsia without severe features - Plan Plan:: Routine cares * A positive, rubella immune, GBS negative * PO pain medication ordered PRN * Regular diet as tolerated * Encourage ambulation and fluid intake when able * Plans to breastfeed, nursing assistance as needed Preeclampsia without severe features * Diagnosed with elevated BP and protein/creatinine ratio of 0.4 * Asymptomatic * Will continue to monitor closely Dispo: stable. Anticipate discharge PPD 2-3 pending maternal/ status. Continue cares today.
[2021-04-03] MEDS: Acetaminophen 500 MG Tab PO PRN (07:56)
--- NOTE | 2021-04-03 09:48 | PCM.PNPP ---
- General Info Date of Service: 04/03/21 Admission Dx/Problem (Free Text): Patient Status Order with Admit Dx/Problem 04/01/21 07:33 Patient Status [ADT] Routine 04/01/21 08:21 Patient Status [ADT] Routine Admission Diagnosis/Problem Admission Diagnosis/Problem Subjective Update: Resting comfortably in bed during rounds. Pain controlled with PO medications. Ambulating and voiding independently. Tolerating regular diet. Lochia decreasing. Denies headache, visual changes or right upper quadrant pain. going well. Baby with elevated bilirubin last evening, under bili- lights early this morning. - General Info Date of Service: 04/03/21 - Patient Data Vital Signs - Most Recent: Last Vital Signs Temp 97.5 F 04/03/21 07:55 Pulse 80 04/03/21 07:55 Resp 16 04/03/21 07:55 BP 117/63 04/03/21 07:55 Pulse Ox 99 04/03/21 07:55 Weight - Most Recent: 222 lb Lab Results - Last 24 Hours: Laboratory Results - last 24 hr 04/03/21 Range/Units 05:45 Hgb 11.8 L (12.0-16.0) g/dL Hct 35.0 L (36.0-46.0) % Med Orders - Current: Current Medications Acetaminophen (Acetaminophen 500 Mg Tab) 500 mg PO Q4H PRN PRN Reason: Pain (mild 1-3) Acetaminophen (Acetaminophen 500 Mg Tab) 1,000 mg PO Q4H PRN PRN Reason: Pain (mild 1-3) Last Admin: 04/03/21 07:56 Dose: 1,000 mg Documented by: Benzocaine/Menthol (Benzocaine/Menthol 20%-0.5% [place] 78 Gm Cannister) 78 gm TOP ASDIRECTED PRN PRN Reason: Perineal Comfort Measure Last Admin: 04/02/21 02:31 Dose: 1 spray Documented by: Bisacodyl (Bisacodyl 10 Mg Supp) 10 mg RECTAL ONETIME PRN PRN Reason: Constipation Butorphanol Tartrate (Butorphanol 1 Mg/Ml Sdv) 1 mg IVPUSH Q1H PRN PRN Reason: Pain (severe 7-10) Carboprost Tromethamine (Carboprost Tromethamine 250 Mcg/1 Ml Amp) 250 mcg IM ASDIRECTED PRN PRN Reason: Post Hemorrhage Docusate Sodium (Docusate Sodium 100 Mg Cap) 100 mg PO Q12H PRN PRN Reason: Constipation Last Admin: 04/02/21 09:57 Dose: 100 mg Documented by: Emollient Ointment (Lanolin 100% Cream 7 Gm Tube) 0 gm TOP ASDIRECTED PRN PRN Reason: Sore Nipples Last Admin: 04/02/21 12:03 Dose: 1 tube Documented by: Ephedrine Sulfate (Ephedrine 50 Mg/Ml Sdv) 10 mg IVPUSH Q5M PRN PRN Reason: Hypotension Last Admin: 04/01/21 17:59 Dose: 5 mg Documented by: Ephedrine Sulfate (Ephedrine 50 Mg/Ml Sdv) 10 mg IVPUSH Q1M PRN PRN Reason: Hypotension Lactated Ringer's (Ringers, Lactated) 1,000 mls @ 150 mls/hr IV ASDIRECTED [facility] Last Admin: 04/01/21 18:07 Dose: 150 mls/hr Documented by: Oxytocin/Sodium Chloride (Oxytocin 30 Unit In Ns 0.9% 500 Ml Premix) 30 unit in 500 mls @ 500 mls/hr IV TITRATE [facility] Last Admin: 04/01/21 23:51 Dose: 500 mls/hr Documented by: Tranexamic Acid 1,000 mg/ (Sodium Chloride) 110 mls @ 660 mls/hr IV ONETIME PRN PRN Reason: Bleeding Ibuprofen (Ibuprofen 400 Mg Tab) 400 mg PO Q4H PRN PRN Reason: Pain (mild 1-3) Ibuprofen (Ibuprofen 800 Mg Tab) 800 mg PO Q6H PRN PRN Reason: Cramping Last Admin: 04/02/21 21:39 Dose: 800 mg Documented by: Lidocaine HCl (Lidocaine 1% 50 Ml Mdv) 50 ml INJECT ONETIME PRN PRN Reason: Laceration repair Methylergonovine Maleate (Methylergonovine 0.2 Mg/1 Ml Amp) 0.2 mg IM ASDIRECTED PRN PRN Reason: Post Hemorrhage Miscellaneous Medication (Phenylephrine Hcl In 0.9% Nacl 1 Mg/10 Ml Syringe) 0.1 mg IVPUSH Q1M PRN PRN Reason: Hypotension Misoprostol (Misoprostol 200 Mcg Tab) 200 mcg PO ONETIME PRN PRN Reason: Post Hemorrhage Nalbuphine HCl (Nalbuphine 10 Mg/1 Ml Vial) 10 mg IVPUSH Q1H PRN PRN Reason: Pain (severe 7-10) Ondansetron HCl (Ondansetron 4 Mg/2 Ml Sdv) 4 mg IVPUSH Q6H PRN PRN Reason: Nausea/Vomiting Oxycodone HCl (Oxycodone 5 Mg Tab) 5 mg PO Q2H PRN PRN Reason: Pain (severe 7-10) Ropivacaine (Ropivacaine 0.2% 2mg/Ml 200 Ml Bag) 400 mg EPIDUR ASDIRECTED MALLY Sodium Chloride (Sodium Chloride 0.9% 10 Ml Syringe) 10 ml FLUSH ASDIRECTED PRN PRN Reason: Keep Vein Open Sodium Chloride (Sodium Chloride 0.9% 2.5 Ml Syringe) 2.5 ml FLUSH ASDIRECTED PRN PRN Reason: Keep Vein Open Sodium Chloride (Sodium Chloride 0.9% 10 Ml Sdv) 10 ml IV ASDIRECTED PRN PRN Reason: IV Use Sterile Water (Water For Irrigation,Sterile 1,000 Ml Container) 1,000 ml IRR ASDIRECTED PRN PRN Reason: delivery Witch Gloria (Witch Gloria Medicated Pads 40/Jar) 1 pad TOP ASDIRECTED PRN PRN Reason: comfort care Last Admin: 04/02/21 02:32 Dose: 1 pad Documented by: Discontinued Medications Ephedrine Sulfate (Ephedrine 50 Mg/Ml Sdv) Confirm Administered Dose 50 mg .ROUTE .STK-MED ONE Stop: 04/01/21 17:41 Last Admin: 04/02/21 02:30 Dose: Not Given Documented by: Ropivacaine (Naropin 0.2%) Confirm Administered Dose 200 mls @ as directed .ROUTE .STK-MED ONE Stop: 04/01/21 15:49 Last Admin: 04/02/21 08:28 Dose: Not Given Documented by: Lidocaine (Lidocaine 2% 5 Ml Sdv) Confirm Administered Dose 10 ml .ROUTE .STK- MED ONE Stop: 04/01/21 16:38 Last Admin: 04/02/21 02:30 Dose: Not Given Documented by: - Infant Interaction Disposition, : [place] in Room with Family Infant Interaction: Holding Infant Infant Feeding: Breastfed ; Nursed Well Support Person: - Recovery Exam Fundal Tone: Firm Fundal Level: 2 Fingerbreadths Below Umbilicus Fundal Placement: Midline Lochia Amount: Scant Lochia Color: Rubra/Red Perineum Description: Intact, Minimal Bruising/Swelling, Other (see below) Other Perinuem Description: 2nd degree repaired Episiotomy/Laceration: Approximated Bladder Status: Voiding Urinary Elimination: Voided - Exam General: Alert Lungs: Normal Respiratory Effort Cardiovascular: Regular Rhythm GI/Abdominal Exam: Soft, Non-Tender Extremities: Normal Range of Motion, Non-Tender, Pedal Edema (1+) Skin: Warm, Dry, Intact Neurological: No New Focal Deficit Psy/Mental Status: Normal Mood - Problem List Review Problem List Initiated/Reviewed/Updated: Yes - Assessment Assessment:: 25 year old G1 now P1 PPD2 s/p with preeclampsia without severe features - Plan Plan:: Routine cares * A positive, rubella immune, GBS negative * PO pain medication ordered PRN * Regular diet as tolerated * Encourage ambulation and fluid intake when able * Plans to breastfeed, nursing assistance as needed Preeclampsia without severe features * Diagnosed with elevated BP and protein/creatinine ratio of 0.4 * Asymptomatic * Will continue to monitor closely Dispo: stable. Anticipate discharge PPD 2-3 pending maternal/infant status. Continue cares today. If discharged today, patient will need BP check at [facility] later this week.
[2021-04-03] MEDS: Ibuprofen 800 MG Tab PO PRN (13:34)
== END 2021-04-03 19:43 | disposition home or self-care (01) | DRG 807 ==
LOC: MW.OBCHECK 07:27 → MW.OB 07:28 → MW.OBCHECK 08:21 → MW.OB 08:21 → OBSVTOIN 23:47 → MW.OB 04-02 02:30
PROVIDERS: ADMIT Obstetrics & Gynecology; ATTEND Obstetrics & Gynecology
PROC: 10E0XZZ Delivery of Products of Conception, External Approach (ICD-10-PCS; principal; 2021-04-01)
PROC: 0KQM0ZZ Repair Perineum Muscle, Open Approach (ICD-10-PCS; 2021-04-01)
PROC: 0UQMXZZ Repair Vulva, External Approach (ICD-10-PCS; 2021-04-01)
DX: O48.0 Post-term pregnancy (principal); Z37.0 Single live birth; O77.0 Labor and delivery complicated by meconium in amniotic fluid; O70.1 Second degree perineal laceration during delivery; O14.04 Mild to moderate pre-eclampsia, complicating childbirth; O99.214 Obesity complicating childbirth; Z3A.40 40 weeks gestation of pregnancy; Z88.0 Allergy status to penicillin
CPT/HCPCS: 01967; 36415; 59025; 59409; 80053; 81003; 82570; 82803; 84112; 84156; 85014; 85018; 85027; 86592; 86850; 86900; 86901; A9270-GY; J2590; J2795; J7120; U0002